=== PATIENT | male | born 1955 | race Caucasian/White ===

== ENCOUNTER 2024-02-13 18:45 | Emergency (ER) | payer MEDICARE ==
[2024-02-13] MEDS ORDERED: Bacitracin 1 PK ONE (19:50)
[2024-02-13] MEDS ORDERED: Acetaminophen 500 MG TAB ONE (19:52)
== END 2024-02-13 20:02 | disposition home or self-care (01) ==
LOC: MADERS 18:45
DX: S00.81XA Abrasion of other part of head, initial encounter (principal); S80.211A Abrasion, right knee, initial encounter; S80.212A Abrasion, left knee, initial encounter; E11.9 Type 2 diabetes mellitus without complications; I10 Essential (primary) hypertension; W01.0XXA Fall on same level from slipping, tripping and stumbling without subsequent striking against object, initial encounter
CPT/HCPCS: 36416; 70450; 70486